=== PATIENT | female | born 1960 | race Caucasian/White ===

== ENCOUNTER 2019-03-16 12:13 | Outpatient (CLI) | payer OTHER ==
--- NOTE | 2019-03-16 15:58 | Diagnostic Imaging Report ---
JENNA MORROW [facility] [address] [facility].[address] [address] Report Submission Date: Mar 16, 2019 3:16:35 PM CDT Patient Study Name: CHUCKY DAMICO Date: Mar 16, 2019 2:06:45 PM CDT Modality Type: DX Gender: F Description: PELVIS AP 1 OR 2 VIEWS : 56 Institution: [facility] Physician: JENNA MORROW Examination: Plain film pelvis History: Pelvic discomfort. Comparison exams: None provided Findings: Single view of the pelvis demonstrate normal cortical margins. No fracture. No dislocation. Superior and inferior pubic rami and iliac wings are without abnormality. Impression: No acute appearing osseous process. Electronically signed on Mar 16, 2019 3:16:35 PM CDT by: Real LEDEZMA
--- NOTE | 2019-03-16 15:59 | Diagnostic Imaging Report ---
JENNA MORROW [facility] [address] [facility].[address] [address] Report Submission Date: Mar 16, 2019 3:28:36 PM CDT Patient Study Name: CHUCKY DAMICO Date: Mar 16, 2019 2:06:45 PM CDT Modality Type: DX Gender: F Description: C SPINE 4 VIEWS OR MORE : 56 Institution: [facility] Physician: JENNA MORROW Examination: Cervical spine History: CERVICALGIA Comparison exams: None available Findings: 9 views of the cervical spine demonstrates osteopenia. Normal height and alignment. No anterior compression. No abnormal listhesis. Scattered osteophytes. Normal flexion extension imaging. Oblique views without significant neuroforaminal narrowing. No odontoid abnormality. No prevertebral abnormality Impression: Osteopenia and degenerative changes. No acute appearing osseous abnormality Electronically signed on Mar 16, 2019 3:28:36 PM CDT by: Real LEDEZMA
--- NOTE | 2019-03-16 15:59 | Diagnostic Imaging Report ---
JENNA MORROW [facility] [address] [facility].[address] [address] Report Submission Date: Mar 16, 2019 3:40:18 PM CDT Patient Study Name: CHUCKY DAMICO Date: Mar 16, 2019 2:23:50 PM CDT Modality Type: DX Gender: F Description: L SPINE 4 VIEWS : 56 Institution: [facility] Physician: JENNA MORROW Lumbar spine four views History: Chronic back pain AP, lateral and bilateral oblique projections of the lumbar spine demonstrate a very slight leftward curvature at the thoracolumbar junction. There has been a cholecystectomy. The radiographs are under penetrated. No spondylolysis is appreciated. There is multilevel facet arthropathy without spondylolisthesis. However, there is an age-indeterminate compression fracture of L3 with an estimated 30% loss of vertebral body height along the superior endplate. There is no significant retropulsion. There is mild disc space narrowing at L4/5. Impression: Age indeterminate superior endplate compression fracture of L3 with an estimated 30% loss of vertebral body height. Mild disc space narrowing at L4/5. Multilevel facet arthropathy without spondylolisthesis. Electronically signed on Mar 16, 2019 3:40:18 PM CDT by: Namrata LEDEZMA
--- NOTE | 2019-03-16 16:30 | Diagnostic Imaging Report ---
JENNA MORROW [facility] [address] [facility] [address] [address] Report Submission Date: Mar 16, 2019 4:27:11 PM CDT Patient Study Name: CHUCKY DAMICO Date: Mar 16, 2019 4:09:45 PM CDT Modality Type: DX Gender: F Description: CHEST 2VIEW : 56 Institution: [facility] Physician: JENNA MORROW Exam: Chest two views. History: Preoperative evaluation. Lung mcgee are well aerated without aretha consolidation or effusion. Heart and mediastinal contour are normal. Degenerate changes in the thoracic spine are seen. Impression: No aretha consolidation or effusion. Electronically signed on Mar 16, 2019 4:27:11 PM CDT by: Shaq LEDEZMA
[2019-03-16 16:56] LABS: BASOPHILS % 0.6 % (0.0-1.5); NEUTROPHILS # 4.1 # k/uL (1.4-7.7)
[2019-03-16 18:10] LABS: eGFR (Non-African) > 60
--- NOTE | 2019-03-21 16:02 | CONSULTATION REPORT ---
DRAFT CHIEF COMPLAINT: 1. Low back pain. 2. Neck pain. HPI: Mrs. Christensen is a 59-year-old female patient here for initial evaluation for low back pain and her secondary pain area being her neck. The patients low back pain started in 2008 and occurred with an incident when she was moving a patient and ended up twisting her back. She heard a pop at that time and has had pain since. 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 Originally, she saw her PCP and was ordered to do physical therapy. She participated in this for 8 weeks with no significant improvement in her pain symptoms. Unfortunately, she could not return to work full duty as they would not release her, and she lost her job as a result of this. The patient did try to go back to work after 6 months, however again could not keep her job related to her pain. She was granted disability in 2009. She did seek treatment in [facility] where she had her first lumbar epidural steroid injection with some improvement in her pain symptoms. She then had a series of three lumbar epidural steroid injections at [facility] in [place]. These again yielded her some relief. Lastly, the patient saw [facility] and he performed radiofrequency ablation of her lumbar facets in 2017. Her pain was improved with this for approximately one year, however, then has progressively worsened back to baseline. Her pain worsened approximately one month ago where she had an incident with a snake and trying to get the snake off her house. Eventually this ended up in her twisting her back and falling. She was transported by EMS to the emergency department and given some nonsteroidal medication and sent home. Her primary care physician then ordered physical therapy and she has done this approximately two times per week and continues without improvement. Her low back pain is constant, aching to sharp throbbing. She does have pain into her right SI area as well as radiation down her right lower extremity. She denies any lower extremity weakness, urinary or bowel incontinence. She denies any saddle anesthesia. Secondary pain area is located in her neck. This is a new onset and only has occurred when she has participated in a physical therapy modality that uses strong vibrations. When this neck pain occurs, it is sharp and shooting from the base of her skull around to under her ear and across her face. As soon as she stops the activity the pain goes away, and she has never experienced it prior to this or since stopping this treatment modality. I have obviously encouraged her not to do that physical therapy modality any further. PAST MEDICAL HISTORY: The patient has a medical history of anxiety, depression, back pain, asthma and COPD, fibromyalgia, osteoarthritis. She has a history of gall bladder disease, however had cholecystectomy in 2009. She has GERD with Barretts esophagus, a hiatal hernia, irritable bowel. She has joint pain in here knees, ankles, hips and feet, shortness of breath with exertion. PAST SURGICAL HISTORY: Arm surgery in 1959, appendectomy in 1963, tonsillectomy 1975, hysterectomy 1979, right knee surgery 2001, right elbow surgery 2003, right shoulder 2006. The cholecystectomy was done in 2009. She also has undergone a uterine ablation prior to her hysterectomy and a bladder sling procedure. All surgeries were without any anesthesia complications. FAMILY HISTORY: Asthma sibling, cancer, colon cancer mother, breast cancer sibling, diabetes father, high blood pressure father, high cholesterol father, obesity sibling and stroke father. SOCIAL HISTORY: Patient is . Occupation is disabled. The patient is a current smoker one pack per day for 40 years. Alcohol is occasional use. The patient denies any recreational drug use. REVIEW OF SYSTEMS: A full review of systems was performed and is negative other than weakness. She does wear glass. Shortness of breath with activity. Lower extremity swelling. Wheezing asthma. Heartburn, constipation, abdominal pain. Hiatal hernia. Anxiety depression. Arm leg weakness, sensitivity of hands feet and heat/cold intolerance. Otherwise all other systems were negative. MEDICATIONS: Lorazepam 0.5 mg t.i.d., Effexor 37.5 mg b.i.d., omeprazole 40 mg once daily, topiramate 100 mg t.i.d., tramadol 37.5 mg b.i.d., Lyrica 100 mg t.i.d., aspirin 81 mg once daily, diclofenac 75 mg b.i.d., and baclofen 10 mg b.i.d. ALLERGIES: Hydroxyzine and Cymbalta. PHYSICAL EXAMINATION: General: This is a female presenting in no acute distress. Vital Signs: The patient is 53 tall, weighs 212 pounds. Her temperature was 98, respiratory rate 14, pulse 84, blood pressure 154/79 with an SaO2 of 98% on room air. Pain is rated 6/10 today. Psych: Alert and oriented x3. She is calm, pleasant and cooperative. She is accompanied by her sister today. HEENT: Normocephalic and atraumatic. Sclerae are clear. External nose is normal. External ears normal. Trachea is midline. There is no lymphadenopathy. She is nontender over her cervical spine on todays exam. She has full range of motion. Cardiovascular: Normal S1, S2 with a regular rate and rhythm. No murmurs, gallops or rubs. Pulmonary: Nonlabored respirations at rest. Lungs are clear to auscultation bilaterally. Slightly diminished in the posterior bases. GI: Abdomen is soft, nondistended and nontender. Bowel sounds present in all 4 quadrants. Musculoskeletal: The patient has tenderness to palpation diffusely through the lumbar facets worse at the L3-4, L4-5 and L5-S1 levels. She also has tenderness to palpation over the right SI joint. She has tenderness to palpation over the right greater trochanteric bursa as well. The patient is able to achieve trunk flexion with fingertips approximately 12 inches from the floor. She can fully extend but does have low back pain with this. With bilateral Kemps she has pain in her low back only with no radiation. Seated straight leg raise is negative for radicular pain. Bilateral lower extremity strength is equal and strong all areas graded 5/5 in hip flexion, knee extension, knee flexion, dorsiflexion and plantar flexion. Station is normal. Gait is mildly antalgic. Neuro: Cranial nerves II-XII are grossly intact. Sensation to light touch in bilateral upper and lower extremities is intact. Patellar reflexes bilateral lower extremities are graded 2+. ASSESSMENT: 1. Cervicalgia. 2. Chronic lumbago. 3. Lumbar facet arthrosis. 4. Right sacroiliitis. 5. Right greater trochanteric bursitis. PLAN: 1. I have ordered cervical x-rays to include flexion, extension and odontoid. 2. I have also ordered lumbar x-rays to include flexion and extension. 3. I have ordered AP pelvis. 4. I have ordered the patient to consult with Dr. Osman. 5. We will follow up the patient in one month or sooner if needed. The patient did verbalize understanding and agrees to the current treatment plan. Sincerely, Patricia Norton, DINO Nurse Practitioner (Dictated but not read) SUNNY/rossi T: 03/20/19 JOB#: [id number] cc: Dr. Pawel Watters [facility]
== END 2019-03-16 13:40 ==
LOC: OUT 12:13
PROVIDERS: ATTEND Nurse Practitioner Adult Health
DX: M99.05 Segmental and somatic dysfunction of pelvic region (principal); M70.61 Trochanteric bursitis, right hip; M47.27 Other spondylosis with radiculopathy, lumbosacral region
CPT/HCPCS: 36415; 71046; 72050; 72170; 80053; 85025; 99202

== ENCOUNTER 2019-04-17 12:29 | Day surgery (SDC) | payer OTHER ==
[~2019-04-17 12:29] MED LIST: KETOROLAC TROMETHAMINE 30 MG/1ML VIAL ONE; LACTATED RINGERS 1,000 ML IV.SOLN IV ONE; LIDOCAINE HCL 2% PF 100MG/5ML VIAL IJ ONE; MIDAZOLAM HCL 2 MG/2 ML VIAL ONE; ONDANSETRON HCL/PF 4 MG/ 2ML VIAL ONE; PROPOFOL 200 MG/20 ML VIAL IV ONE; fentaNYL CITRATE/PF 100 MCG/2 ML INJ. ONE
== END 2019-04-17 15:20 | disposition home or self-care (01) ==
LOC: OPSURG 12:29
PROVIDERS: ATTEND Chiropractor
DX: M99.05 Segmental and somatic dysfunction of pelvic region (principal); M70.61 Trochanteric bursitis, right hip; M99.06 Segmental and somatic dysfunction of lower extremity; M47.27 Other spondylosis with radiculopathy, lumbosacral region
CPT/HCPCS: 22505; 27198; 27275; J1885; J2001; J2250; J2405; J2704; J3010; J7120

== ENCOUNTER 2019-04-18 12:25 | Day surgery (SDC) | payer OTHER ==
[~2019-04-18 12:25] MED LIST changes: +SEVOFLURANE 250 ML LIQUID IH ONE
== END 2019-04-18 15:58 | disposition home or self-care (01) ==
LOC: OPSURG 12:25
PROVIDERS: ATTEND Chiropractor
DX: M99.05 Segmental and somatic dysfunction of pelvic region (principal); M70.61 Trochanteric bursitis, right hip; M99.06 Segmental and somatic dysfunction of lower extremity; M47.27 Other spondylosis with radiculopathy, lumbosacral region; M47.21 Other spondylosis with radiculopathy, occipito-atlanto-axial region
CPT/HCPCS: 22505; 27198; 27275; J1885; J2001; J2250; J2405; J2704; J3010; J7120

== ENCOUNTER 2019-04-19 11:05 | Day surgery (SDC) | payer OTHER ==
[~2019-04-19 11:05] MED LIST changes: +AMPICILLIN SODIUM 1 GM VIAL ONE; -fentaNYL CITRATE/PF 100 MCG/2 ML INJ. ONE
== END 2019-04-19 14:20 | disposition home or self-care (01) ==
LOC: OPSURG 11:05
PROVIDERS: ATTEND Chiropractor
DX: M99.05 Segmental and somatic dysfunction of pelvic region (principal); M70.61 Trochanteric bursitis, right hip; M99.06 Segmental and somatic dysfunction of lower extremity; M47.27 Other spondylosis with radiculopathy, lumbosacral region; M47.21 Other spondylosis with radiculopathy, occipito-atlanto-axial region
CPT/HCPCS: 22505; 27198; 27275; J0290; J1885; J2001; J2250; J2405; J2704; J7120